=== PATIENT | female | born 1955 | race Native Hawaiian/Other Pacific Islander ===

== ENCOUNTER 2019-03-15 09:44 | Emergency (ER) | payer OTHER ==
[~2019-03-15] VITALS: Ht 170.2 cm; Wt 90.3 kg
[2019-03-15 09:49] VITALS: TEMP 97.9
[2019-03-15 12:11] VITALS: BP 115/64
== END 2019-03-15 12:11 | disposition home or self-care (01) ==
LOC: ED 09:44
DX: S16.1XXA Strain of muscle, fascia and tendon at neck level, initial encounter (principal); S29.012A Strain of muscle and tendon of back wall of thorax, initial encounter; W19.XXXA Unspecified fall, initial encounter; Y92.098 Other place in other non-institutional residence as the place of occurrence of the external cause
CPT/HCPCS: 96372; 99283; J1885

== ENCOUNTER 2019-06-21 09:49 | Outpatient (CLI) | payer OTHER | END 2019-06-21 20:29 | disposition home or self-care (01) | LOC: MRI 09:49 | DX: M48.02 Spinal stenosis, cervical region (principal); M47.12 Other spondylosis with myelopathy, cervical region; R26.89 Other abnormalities of gait and mobility ==

== ENCOUNTER 2019-10-30 10:04 | Outpatient (CLI) | payer OTHER | END 2019-10-30 19:24 | disposition home or self-care (01) | LOC: MRI 10:04 | DX: M51.17 Intervertebral disc disorders with radiculopathy, lumbosacral region (principal) ==

== ENCOUNTER 2020-05-30 17:35 | Outpatient (CLI) | payer OTHER | END 2020-05-30 20:51 | disposition home or self-care (01) | LOC: LAB 17:35 | PROVIDERS: ATTEND Nurse Practitioner Family | DX: R30.0 Dysuria (principal) | CPT/HCPCS: 81000; 87088 ==

== ENCOUNTER 2020-10-24 17:10 | Outpatient (CLI) | payer OTHER ==
[2020-11-08 12:53] LABS: POTASSIUM 4.1 mmol/L (3.6-5.2)
[2020-11-08 12:55] LABS: PLATELET COUNT 278 K/uL (152-353)
== END 2020-10-24 19:00 | disposition home or self-care (01) ==
LOC: LAB 17:10
PROVIDERS: ATTEND Nurse Practitioner Family
DX: I10 Essential (primary) hypertension (principal); F41.8 Other specified anxiety disorders; E55.9 Vitamin D deficiency, unspecified; R53.83 Other fatigue; G89.29 Other chronic pain; R53.81 Other malaise; Z79.899 Other long term (current) drug therapy
CPT/HCPCS: 80053; 80061; 83036; 84439; 84443; 85027

== ENCOUNTER 2021-06-04 10:25 | Outpatient (CLI) | payer OTHER | END 2021-06-04 18:48 | disposition home or self-care (01) | LOC: CT 10:25 | PROVIDERS: ATTEND Nurse Practitioner Family | DX: Z09 Encounter for follow-up examination after completed treatment for conditions other than malignant neoplasm (principal); Z87.19 Personal history of other diseases of the digestive system; R10.33 Periumbilical pain; R19.7 Diarrhea, unspecified | CPT/HCPCS: 36415; 82565; 84520; Q9963 ==